=== PATIENT | male | born 1935 | race Caucasian/White ===

== ENCOUNTER 2017-08-28 12:49 | Emergency (ER) | payer MEDICARE, MEDICAID ==
[~2017-08-28] VITALS: Ht 162.6 cm; Wt 92.0 kg
[2017-08-28] MEDS ORDERED: TETANUS, DIPHTHERIA, PERTUSSIS VAC/PF 0.5ML (>7YR OLD) IM ONE (14:30)
[2017-08-28] MEDS ORDERED: CEFAZOLIN SODIUM 1000MG/VIAL IM ONE (14:30)
[2017-08-28 15:33] VITALS: BP 139/76
== END 2017-08-28 15:57 | disposition home or self-care (01) ==
LOC: ER 15:07
DX: S68.110A Complete traumatic metacarpophalangeal amputation of right index finger, initial encounter (principal); I10 Essential (primary) hypertension; W22.03XA Walked into furniture, initial encounter; Y93.89 Activity, other specified; Y92.89 Other specified places as the place of occurrence of the external cause
CPT/HCPCS: 29130; 73130; 90471; 90715; 96372; 99284; J0690